=== PATIENT | male | born 1995 | race Two or more races ===

== ENCOUNTER 2018-03-18 10:38 | Emergency (ER) | payer SELFPAY ==
[~2018-03-18] VITALS: Ht 185.4 cm; Wt 143.4 kg
[2018-03-18 11:52] LABS: BASOPHILS # (AUTO) 0.03 x10^3/uL (0-0.3); BASOPHILS % (AUTO) 0 % (0-1); EOSINOPHILS # (AUTO) 0.28 x10^3/uL (0-0.8); EOSINOPHILS % (AUTO) 2 % (1-7); LYMPHOCYTES # (AUTO) 2.63 x10^3/uL (1-6.1); LYMPHOCYTES % (AUTO) 20 % (22-44); MD NO; MEAN CORPUSCULAR HEMOGLOBIN 28.4 pg (27.5-34.5); MEAN CORPUSCULAR HGB CONC 34.1 g/dL (33.2-36.2); MEAN CORPUSCULAR VOLUME 83.2 fL (81-97); MEAN PLATELET VOLUME 8.2 fL (7.4-10.4); MONOCYTES # (AUTO) 0.34 x10^3/uL (0-1.4); MONOCYTES % (AUTO) 3 % (2-9); NEUTROPHILS # (AUTO) 10.09 x10^3/uL (1.8-8.0); NEUTROPHILS % (AUTO) 76 % (42-75); PLATELET COUNT 391 x10^3/uL (130-400)
[2018-03-18 11:56] LABS: ALANINE AMINOTRANSFERASE 93 U/L (12-78); ALBUMIN 3.7 g/dL (3.4-5.0); ANION GAP 9 mmol/L (5-15); CALCIUM 9.3 mg/dL (8.5-10.1); CHLORIDE 103 mmol/L (98-107); CREATININE 0.74 mg/dL (0.7-1.3)
[2018-03-18 11:58] LABS: ALKALINE PHOSPHATASE 90 U/L (45-117); BILIRUBIN,TOTAL 0.4 mg/dL (0.2-1.0); TOTAL PROTEIN 8.2 g/dL (6.4-8.2)
[2018-03-18] MEDS ORDERED: SODIUM CHLORIDE 0.9% 1,000ML IVBOLUS ONE (12:30)
[2018-03-18] MEDS ORDERED: SODIUM CHLORIDE FLUSH 10ML SYR IVF ONE (12:30)
[2018-03-18 13:05] VITALS: BP 121/74
[2018-03-18] MEDS ORDERED: OMNIPAQUE 350 MG/ML, 100ML BOTTLE ONE (13:24)
== END 2018-03-18 14:49 | disposition home or self-care (01) ==
LOC: ED 11:53
DX: K62.5 Hemorrhage of anus and rectum (principal); R10.11 Right upper quadrant pain
CPT/HCPCS: 36415; 74021; 74177; 80053; 83690; 85025; 86677; 99285; J7030; Q9967

== ENCOUNTER 2020-10-15 06:07 | Emergency (ER) | payer SELFPAY ==
[~2020-10-15] VITALS: Ht 185.4 cm; Wt 140.1 kg
[2020-10-15] MEDS ORDERED: IBUPROFEN 800 MG TABLET ONE (06:28)
[2020-10-15] MEDS ORDERED: IBUPROFEN 800 MG TABLET PO ONE (06:30)
--- NOTE | 2020-10-15 06:30 | NUR ---
Pt states slipping and falling straight onto his back this morning in the driveway. Pt was able to drive himself in. Pt denies hitting head. Pt denies C-spine tenderness. Pt with mid to low midline back pain, worse with palp. Pt did not want IM toradol, PO motrin given, and pt to xray.
--- NOTE | 2020-10-15 06:53 | NUR ---
PT BACK FROM XR
[2020-10-15 07:03] VITALS: BP 117/67
--- NOTE | 2020-10-15 07:03 | NUR ---
PT CALMLY LAYING ON GURNEY, WATCHING TV. NAD/VSS. COMFORT MEASURES PROVIDED. CALL LIGHT WITHIN REACH.
--- NOTE | 2020-10-15 07:33 | NUR ---
Patient given discharge instructions and they have confirmed that they understand the instructions. Patient ambulatory with steady gait.
== END 2020-10-15 07:34 | disposition home or self-care (01) ==
LOC: ED 07:22
DX: S39.012A Strain of muscle, fascia and tendon of lower back, initial encounter (principal); W01.0XXA Fall on same level from slipping, tripping and stumbling without subsequent striking against object, initial encounter; Y93.89 Activity, other specified; Y92.89 Other specified places as the place of occurrence of the external cause; Y99.8 Other external cause status
CPT/HCPCS: 72072; 72110; 99284